=== PATIENT | male | born 1980 | race Caucasian/White ===

== ENCOUNTER 2020-10-07 15:12 | Emergency (ER) | payer MEDICAID ==
[~2020-10-07] VITALS: Ht 162.6 cm; Wt 65.8 kg
[2020-10-07 16:20] VITALS: BP_SYST 142
== END 2020-10-07 16:24 | disposition home or self-care (01) ==
LOC: SED 15:12
DX: L02.11 Cutaneous abscess of neck (principal); F17.200 Nicotine dependence, unspecified, uncomplicated; F12.90 Cannabis use, unspecified, uncomplicated; Z76.0 Encounter for issue of repeat prescription
CPT/HCPCS: 99283

== ENCOUNTER 2020-10-10 11:05 | Emergency (ER) | payer MEDICAID ==
[~2020-10-10] VITALS: Ht 162.6 cm; Wt 72.6 kg
[2020-10-10 11:29] VITALS: BP_SYST 149
[2020-10-10 13:23] VITALS: BP_SYST 149
== END 2020-10-10 13:23 | disposition home or self-care (01) ==
LOC: SED 11:05
DX: L02.11 Cutaneous abscess of neck (principal); F17.200 Nicotine dependence, unspecified, uncomplicated; F12.90 Cannabis use, unspecified, uncomplicated
CPT/HCPCS: 99282